=== PATIENT | female | born 1990 | race Caucasian/White ===

== ENCOUNTER → 2018-12-02 | Outpatient (CLI) | payer OTHER | LOC: FIMAGING 13:49 | PROVIDERS: ATTEND Advanced Practice Midwife | DX: Z36.82 Encounter for antenatal screening for nuchal translucency (principal); O09.291 Supervision of pregnancy with other poor reproductive or obstetric history, first trimester; Z3A.12 12 weeks gestation of pregnancy; Z84.81 Family history of carrier of genetic disease ==